=== PATIENT | male | born 1985 | race Two or more races ===

== ENCOUNTER 2025-07-20 13:50 | Emergency (ER) | payer BC, SELFPAY ==
--- NOTE | 2025-07-20 13:57 | EKG_ITS ---
[facility] Test Date: 2025-07-20 Pat Name: CHINYERE ROONEY Department: Room: - Gender: Male Probation Worker: : 1985 Requested By: Eleno Esteves Order Number: [id number] Reading MD: Eleno Esteves Measurements Intervals [place] Rate: 74 P: 28 MA: 150 QRS: 32 QRSD: 105 T: 32 QT: 358 QTc: 398 Interpretive Statements SINUS RHYTHM NONSPECIFIC T-WAVE ABNORMALITY No previous ECG available for comparison /store/S0/[id number]/ecg/[id number].pdf
[2025-07-20 14:03] VITALS: BMI 28.2
[2025-07-20 14:04] VITALS: BP 120/71; PULSE 65; RESP 18; TEMP 37; O2SAT 97
--- NOTE | 2025-07-20 14:20 | PD.EDHAND ---
Upper Extremity Injury RME/HPI General Chief Complaint: Hand/Wrist Problems Stated Complaint: Gout left wrist, left chest pain, feels faint Time Seen by Provider: 07/20/25 13:57 Arrival date/time: 07/20/25 13:50 RME / HPI RME / HPI narrative: 39-year-old male patient came in for evaluation regarding left wrist pain and swelling. Patient was drinking beer last night and this morning woke up with pain and swelling to the left wrist and earlier today the pain radiates to the elbow shoulder and chest. Patient denies any shortness of breath. Patient also complained of left ankle pain. Patient is ambulatory but limping. Patient told me that she been suffering from gout attack the last gout attack was a month ago. Currently not taking any medication. Related Data Previous Rx's ?Medication ?Instructions ?Recorded colchicine 0.6 mg capsule 0.6 mg PO BID #14 caps 07/20/25 indomethacin 75 mg 75 mg PO BID #20 caps 07/20/25 capsule,extended release prednisone 50 mg tablet 50 mg PO QDAY #7 tabs 07/20/25 Allergies Allergy/AdvReac Type Severity Reaction Status Date / Time Penicillins Allergy Verified 07/20/25 13:55 Review of Systems Review of Systems Narrative Review of Systems: Review of system reviewed and within normal limits except mentioned in HPI ED Exam Narrative Physical exam: VITAL SIGNS: Reviewed. GENERAL APPEARANCE: Alert and interactive, follows commands, no acute distress, HEAD AND FACE: Non-traumatic. ENT: PERRL, pink conjunctivitis, eyelid no trauma, Mucous membrane moist. NECK: Supple, nontender, no nuchal rigidity. CHEST: No tenderness, no crepitus, no paradoxical movement, no retractions. LUNGS: Clear, well ventilated, symmetric, no rales, no wheezing, no ronchi, no stridor, good breath sounds bilaterally. HEART: Regular rate, regular rhythm, no murmur, no gallops. ABDOMEN: Soft, positive bowel sounds, nondistended, no guarding, nontender, no rebound, no masses, RECTAL: Deferred. GENITAL: Deferred. NEUROLOGICAL: Gross motor function intact sensory function intact, Appropriate for age. MUSCULOSKELETAL: low back nontender, full range of motion. EXTREMITIES: Left wrist tenderness, mild swelling, no redness limitation range of motion. Left ankle tenderness no redness mild swelling full range of motion of the ankle joints SKIN: Color pink, dry, no rash, no lacerations, no abrasions, no contusions. LYMPHATICS: Deferred. Course Quality Measures none Orders Category Date Time Status EKG (ED ONLY) *Do not use* NOW Care 07/20/25 13:57 Completed EKG (ED Only) Stat Exams 07/20/25 13:57 Ordered CBC [CBC] Stat Lab 07/20/25 14:28 Completed CMP [Comprehensive Metabolic Panel] Stat Lab 07/20/25 14:28 Completed Troponin I Stat Lab 07/20/25 14:28 Completed Uric Acid Stat Lab 07/20/25 14:28 Completed Colchicine Med 07/20/25 14:19 Discontinued 1.2 mg PO X1 ONE Dexamethasone Inj [Decadron Inj] Med 07/20/25 14:19 Discontinued 10 mg PO X1 ONE Ketorolac Inj [Toradol Inj] Med 07/20/25 14:19 Discontinued 30 mg IM X1 ONE Vital Signs Vital signs: Vital Signs Temperature 98.6 F 07/20/25 14:04 Pulse Rate 65 07/20/25 14:04 Respiratory Rate 18 07/20/25 14:04 Blood Pressure 120/71 07/20/25 14:04 Pulse Oximetry (%) 97 07/20/25 14:04 Oxygen Delivery Method Room Air 07/20/25 14:04 Extremity Injury MDM Narrative MDM Narrative:: 39-year-old male patient came in for evaluation regarding left wrist pain and swelling. Patient was drinking beer last night and this morning woke up with pain and swelling to the left wrist and earlier today the pain radiates to the elbow shoulder and chest. Patient denies any shortness of breath. Patient also complained of left ankle pain. Patient is ambulatory but limping. Patient told me that she been suffering from gout attack the last gout attack was a month ago. Currently not taking any medication. Patient's workup today all came back unremarkable uric acid is normal except for slight leukocytosis 12.2 CMP unremarkable. Patient was given Toradol IM Decadron p.o., colchicine with significant improvement of symptoms. Patient was advised to stop drinking beer, eating food high in purine to decrease recurrence of gout attack. Patient agrees with the plan. Patient data External records reviewed:: None Clinical information provided by:: patient Social determinants that could affect healthcare access:: none Patient has the following chronic illnesses:: History of gout How is presenting disease/condition affected by chronic disease/condition?: exacerbated by Evaluation data The following diagnostics were reviewed and interpreted by me:: lab results Lab and/or radiology exams considered but not ordered:: None Interpretation Summary: See results MDM Medications / Prescriptions Medications or Prescriptions considered but not ordered:: None Medication administrations:: Medication Administration History Discontinued Medications Colchicine (Colchicine 0.6 Mg Tablet) 1.2 mg PO X1 ONE Stop: 07/20/25 14:20 Last Admin: 07/20/25 15:57 Dose: 1.2 mg Documented By: Dexamethasone Sodium Phosphate (Dexamethasone Sod Phos Inj 10 Mg/Ml Vial) 10 mg PO X1 ONE Stop: 07/20/25 14:20 Last Admin: 07/20/25 15:58 Dose: 10 mg Documented By: Ketorolac Tromethamine (Ketorolac Inj 30 Mg/Ml Vial) 30 mg IM X1 ONE Stop: 07/20/25 14:20 Last Admin: 07/20/25 15:58 Dose: 30 mg Documented By: Toradol Decadron and colchicine Consultations Consultation(s) initiated? (list below): No Diagnosis Upper Extremity Injury Differential Diagnosis: sprain and strain of wrist and other (Flare of gout,) Most likely diagnosis given after review of the tests above:: Gout flare Admission Indicated Admission indicated?: not indicated Explain why admission is indicated or not indicated:: Stable Admission Request Was there a request for admission?: No Disposition Plan Disposition Plan: Discharge Discharge Attestation Discharge Attestation: The patient was given an opportunity to ask questions and understood the discharge instructions. Discharge instructions specifically effects, indications for sooner follow up or return to the emergency department, and the expected course of current diagnosis. Patient condition: Stable Discharge Plan Plan Patient Disposition: HOME (Self Care) Discharge Disposition comment: Stable Prescriptions/Referrals Prescriptions/Med Rec: New prednisone 50 mg tablet 50 mg PO QDAY Qty: 7 0RF indomethacin 75 mg capsule, extended release 75 mg PO BID Qty: 20 0RF colchicine 0.6 mg capsule 0.6 mg PO BID Qty: 14 0RF Referrals: Albaro Keys[facility]MD [Primary Care Provider, Family Practice] - In 1 week Problem List Clinical Impression: Gout flare Patient/Caregiver Discharge Instructions Discharge Activity: activity as tolerated Education Materials: ED Gout Diet Additional Instructions: Thank you for the opportunity for serving you today. You are stable for discharged . You are advised to: Follow-up with your PCP in 1 to 2 days Return to ED for worsening of symptoms Increase oral fluids Take medication as prescribed Please avoid eating food and drinks that will flareup your gout Print Language: Syriac Stand Alone Forms: Kym Award Info., Patient Portal Info Letter OSEI/LEAH Supervising Physician OSEI/LEAH Supervising Physician: MD Brian
[2025-07-20 14:40] LABS: Basophils # (Auto) 0.0 Thou/mm3 (0.0-0.2); Basophils % (Auto) 0 % (0-2.5); Eosinophils # (Auto) 0.1 Thou/mm3 (0.0-0.5); Eosinophils % (Auto) 1 % (0-10); Hematocrit 44.2 % (41.0-53.0); Hemoglobin 14.5 g/dL (13.5-16.0); Immature Granulocytes Auto 0.05 Thou/mm3 (0.00-0.00); Lymphocytes # (Auto) 1.9 Thou/mm3 (1.0-4.8); Lymphocytes % (Auto) 15 % (10-50); Mean Corpuscular HGB Conc 32.8 g/dl (31.0-37.0); Mean Corpuscular Hemoglobin 27.4 pg (25.0-35.0); Mean Corpuscular Volume 83 fL (80-100); Monocytes # (Auto) 1.3 Thou/mm3 (0.0-0.8); Monocytes % (Auto) 10 % (0-12); Neutrophils # (Auto) 8.9 Thou/mm3 (1.8-7.7); Neutrophils % (Auto) 73 % (37-80); Nucleated Red Blood Cell # 0.00 Thou/mm3 (0.00-0.00); Nucleated Red Blood Cell % 0 /100 WBC (0); Platelet Count 156 Thou/mm3 (140-440); RDW Standard Deviation 40.4 fL (35.1-43.9); Red Blood Count 5.30 Miln/mm3 (4.50-5.90); White Blood Count 12.2 Thou/mm3 (3.8-10.6)
[2025-07-20 15:08] LABS: Alanine Aminotransferase 54 U/L (10-49); Albumin, Serum 4.9 gm/dL (3.5-5.0); Albumin/Globulin Ratio 1.8 (1.2-2.2); Alkaline Phosphatase 81 U/L (46-116); Anion Gap 10 (7-16); Aspartate Amino Transferase 28 U/L (0-34); BUN/Creatinine Ratio 11 Ratio (12-20); Bilirubin,Total 0.6 mg/dL (0.3-1.2); Blood Urea Nitrogen 12 mg/dL (9-23); Calcium 10.5 mg/dL (8.3-10.6); Calcium (Corrected) 10.5 mg/dL (8.5-10.1); Carbon Dioxide 27.8 mMol/L (20.0-31.0); Chloride 104 mMol/L (98-107); Creatinine (Component) 1.1 mg/dL (0.6-1.3); Estimated Creatinine Clearance 106.5 mL/min (>60); Globulin 2.7 gm/dL (2.3-3.5); Glucose 108 mg/dL (74-106); Osmolality,Calculated 283 (275-295); Potassium 4.5 mMol/L (3.4-5.1); Sodium 142 mMol/L (136-145); Total Protein 7.6 gm/dL (5.7-8.2); Troponin I < 0.002 ng/mL (0.0-0.045); Uric Acid 8.9 mg/dL (3.7-9.2); eGFR > 60 See Note
[2025-07-20] MEDS: COLCHICINE 0.6 MG TABLET 1.2 MG PO (15:57)
[2025-07-20] MEDS: DEXAMETHASONE SOD PHOS INJ 10 MG/ML VIAL PO (15:58)
[2025-07-20] MEDS: KETOROLAC INJ 30 MG/ML VIAL IM (15:58)
== END 2025-07-20 17:24 | disposition home or self-care (01) ==
PROVIDERS: Emergency Provider Nurse Practitioner Family; PCP Family Medicine
DX: M10.9 Gout, unspecified (principal); R94.31 Abnormal electrocardiogram [ECG] [EKG]; D72.829 Elevated white blood cell count, unspecified
CPT/HCPCS: 36415; 80053; 84484; 84550; 85025; 93005; 99284; J1100; J1885; A9270

== ENCOUNTER → 2025-08-27 | Outpatient (CLI) | payer BC, SELFPAY ==
--- NOTE | 2025-08-27 15:55 | XR_ITS ---
Examination: Humerus 2 views left Technique: Humerus, AP lateral 2 views Date and time of exam: August 27, 2025, 1631 hours INDICATIONS: Arm pain 3 months gout history FINDINGS: No shoulder fracture or dislocation Shaft of the humerus intact IMPRESSION: No shoulder fracture or dislocation No erosive arthritis
--- NOTE | 2025-08-27 15:55 | XR_ITS ---
Examination: Forearm, left, 2 views. Technique: Forearm, AP, lateral 2 views Date and time of exam: August 27, 2025, 1631 hours INDICATIONS: Forearm pain several months, gout diagnosis FINDINGS: Mild narrowing radiocarpal joint No erosive arthritis. 12 mm posterior bony olecranon spur No fracture IMPRESSION: Mild narrowing radiocarpal joint
--- NOTE | 2025-08-27 15:55 | XR_ITS ---
Examination: Shoulder, left, 3 views Technique: Shoulder AP internal rotation, AP external rotation, Y view shoulder, 3 views Exam date and time : August 27, 2025, 1635 hours INDICATIONS: Shoulder pain several months, gout diagnosis FINDINGS: No shoulder fracture or dislocation No erosive arthritis No foreign body IMPRESSION: No erosive arthritis
--- NOTE | 2025-08-27 15:55 | XR_ITS ---
Examination: Right elbow 3 views Technique: Elbow AP, oblique, lateral 3 views Exam date and time: August 27, 2025, 1611 hours INDICATIONS: Elbow pain several months, gout history FINDINGS: Mild elbow osteoarthritis 12 mm posterior bony olecranon spur No erosive arthritis IMPRESSION: Mild elbow osteoarthritis.
--- NOTE | 2025-08-27 15:55 | XR_ITS ---
EXAMINATION: Ankle, left 3 views. Technique: Ankle AP, oblique, lateral 3 views Date and time of exam: August 27, 2025, 1631 hours INDICATIONS: Ankle pain months, diagnosis gout FINDINGS: Mild narrowing tibiotalar joint No erosive arthritis Ossification in the Achilles insertion IMPRESSION: Mild narrowing tibiotalar joint
== END | disposition home or self-care (01) ==
PROVIDERS: PCP Nurse Practitioner; Referring Provider Nurse Practitioner; Visit Provider Nurse Practitioner
DX: M79.602 Pain in left arm (principal); M25.872 Other specified joint disorders, left ankle and foot; M25.80 Other specified joint disorders, unspecified joint; M19.022 Primary osteoarthritis, left elbow; M25.512 Pain in left shoulder
CPT/HCPCS: 73030; 73060; 73080; 73090; 73610

== ENCOUNTER → 2025-08-28 | Outpatient (CLI) | payer BC, SELFPAY ==
[2025-08-28 10:12] LABS: Collection Type, Urine Clean Catch; Squamous Epithelial Cell,Urine 0 /hpf (0-5)
[2025-08-28 10:44] LABS: Basophils # (Auto) 0.0 Thou/mm3 (0.0-0.2); Basophils % (Auto) 0 % (0-2.5); Eosinophils # (Auto) 0.0 Thou/mm3 (0.0-0.5); Eosinophils % (Auto) 0 % (0-10); Hematocrit 44.5 % (41.0-53.0); Hemoglobin 15.1 g/dL (13.5-16.0); Immature Granulocytes Auto 0.04 Thou/mm3 (0.00-0.00); Lymphocytes # (Auto) 1.2 Thou/mm3 (1.0-4.8); Lymphocytes % (Auto) 10 % (10-50); Mean Corpuscular HGB Conc 33.9 g/dl (31.0-37.0); Mean Corpuscular Hemoglobin 27.4 pg (25.0-35.0); Mean Corpuscular Volume 81 fL (80-100); Monocytes # (Auto) 0.7 Thou/mm3 (0.0-0.8); Monocytes % (Auto) 6 % (0-12); Neutrophils # (Auto) 10.3 Thou/mm3 (1.8-7.7); Neutrophils % (Auto) 84 % (37-80); Nucleated Red Blood Cell # 0.00 Thou/mm3 (0.00-0.00); Nucleated Red Blood Cell % 0 /100 WBC (0); Platelet Count 213 Thou/mm3 (140-440); RDW Standard Deviation 36.0 fL (35.1-43.9); Red Blood Count 5.51 Miln/mm3 (4.50-5.90); White Blood Count 12.2 Thou/mm3 (3.8-10.6)
[2025-08-28 10:57] LABS: Folate 15.39 ng/mL (>5.38); Vitamin B12 464 pg/mL (211-911); Vitamin D 25 Hydroxy Total 23.0 ng/mL (7.3-40.2)
[2025-08-28 11:14] LABS: Bilirubin,Urine Negative (Negative); Blood,Urine Trace (Negative); Clarity,Urine Clear (Clear/Hazy); Color,Urine Lt-Yellow (Lt Yel-Yel); Glucose, Urine Negative (Negative); Hyaline Casts,Urine < 1 /hpf (0-1); Ketones,Urine Negative (Negative); Leukocyte Esterase,Urine Negative (Negative); Nitrite,Urine Negative (Negative); PH,Urine 5.5 (5.0-7.0); Protein,Urine Trace (Neg - Trace); RBC,Urine 2 /hpf (0-3); Specific Gravity,Urine 1.024 (1.001-1.035); Urobilinogen,Urine Negative mg/dL (0.0-1.0); WBC,Urine 2 /hpf (0-5)
[2025-08-28 11:15] LABS: Alanine Aminotransferase 24 U/L (10-49); Albumin, Serum 5.3 gm/dL (3.5-5.0); Albumin/Globulin Ratio 2.0 (1.2-2.2); Alkaline Phosphatase 85 U/L (46-116); Anion Gap 11 (7-16); Aspartate Amino Transferase 18 U/L (0-34); BUN/Creatinine Ratio 18 Ratio (12-20); Bilirubin,Total 0.6 mg/dL (0.3-1.2); Blood Urea Nitrogen 18 mg/dL (9-23); Calcium 10.7 mg/dL (8.3-10.6); Calcium (Corrected) 10.7 mg/dL (8.5-10.1); Carbon Dioxide 26.4 mMol/L (20.0-31.0); Chloride 104 mMol/L (98-107); Creatinine (Component) 1.0 mg/dL (0.6-1.3); Free T4 (Free Thyroxine) 1.24 ng/dL (0.89-1.76); Globulin 2.7 gm/dL (2.3-3.5); Glucose 116 mg/dL (74-106); Osmolality,Calculated 284 (275-295); Potassium 4.8 mMol/L (3.4-5.1); Sodium 141 mMol/L (136-145); Thyroid Stimulating Hormone 0.75 uIU/mL (0.55-4.78); Total Protein 8.0 gm/dL (5.7-8.2); Uric Acid 9.7 mg/dL (3.7-9.2); eGFR > 60 See Note
[2025-08-28 11:27] LABS: Sperm,Urine Present
[2025-08-28 12:00] LABS: Sed Rate (ESR) 39 mm/hr (0-15)
[2025-08-28 12:33] LABS: Glucose Estimated Average 105 mg/dL (80-131); Hemoglobin A1C 5.3 % Hgb (4.8-6.0)
[2025-08-28 12:39] LABS: C-Reactive Protein 2.2 mg/dL (0.0-0.9); Cardiac Risk Estimate 4.2 RATIO (4.0-6.7); Cholesterol 249 mg/dL (132-200); Free T3 2.6 pg/mL (2.3-4.2); HDL Cholesterol 60 mg/dL (40-60); LDL Cholesterol,Calculated 172 mg/dL (0-130); Triglycerides 83 mg/dL (30-150)
[2025-09-05 07:36] LABS: Estradiol, Ultrasensitive* 14 pg/mL (< OR = 29); Testosterone, Free,Dialysis 27.2 pg/mL (35.0-155.0); Testosterone, Total, Dialysis 136 ng/dL (250-1100)
== END | disposition home or self-care (01) ==
LOC: COPL 09:26
PROVIDERS: PCP Nurse Practitioner; Referring Provider Nurse Practitioner; Visit Provider Nurse Practitioner
DX: M25.50 Pain in unspecified joint (principal); R53.83 Other fatigue; Z13.220 Encounter for screening for lipoid disorders; Z13.1 Encounter for screening for diabetes mellitus; M10.9 Gout, unspecified
CPT/HCPCS: 36415; 80053; 80061; 81001; 82306; 82607; 82670; 82746; 83036; 84402; 84403; 84439; 84443; 84481; 84550; 85025; 85652; 86140

== ENCOUNTER → 2025-10-16 | Outpatient (CLI) | payer BC, SELFPAY ==
[2025-10-16 10:17] LABS: Basophils # (Auto) 0.0 Thou/mm3 (0.0-0.2); Basophils % (Auto) 0 % (0-2.5); Eosinophils # (Auto) 0.1 Thou/mm3 (0.0-0.5); Eosinophils % (Auto) 1 % (0-10); Hematocrit 44.6 % (41.0-53.0); Hemoglobin 14.5 g/dL (13.5-16.0); Immature Granulocytes Auto 0.07 Thou/mm3 (0.00-0.00); Lymphocytes # (Auto) 4.6 Thou/mm3 (1.0-4.8); Lymphocytes % (Auto) 46 % (10-50); Mean Corpuscular HGB Conc 32.5 g/dl (31.0-37.0); Mean Corpuscular Hemoglobin 27.0 pg (25.0-35.0); Mean Corpuscular Volume 83 fL (80-100); Monocytes # (Auto) 1.1 Thou/mm3 (0.0-0.8); Monocytes % (Auto) 11 % (0-12); Neutrophils # (Auto) 4.2 Thou/mm3 (1.8-7.7); Neutrophils % (Auto) 41 % (37-80); Nucleated Red Blood Cell # 0.00 Thou/mm3 (0.00-0.00); Nucleated Red Blood Cell % 0 /100 WBC (0); Platelet Count 178 Thou/mm3 (140-440); RDW Standard Deviation 41.2 fL (35.1-43.9); Red Blood Count 5.37 Miln/mm3 (4.50-5.90); White Blood Count 10.1 Thou/mm3 (3.8-10.6)
[2025-10-16 10:34] LABS: Alanine Aminotransferase 14 U/L (10-49); Albumin, Serum 4.5 gm/dL (3.5-5.0); Albumin/Globulin Ratio 1.8 (1.2-2.2); Alkaline Phosphatase 67 U/L (46-116); Anion Gap 9 (7-16); Aspartate Amino Transferase 11 U/L (0-34); BUN/Creatinine Ratio 17 Ratio (12-20); Bilirubin,Total 0.6 mg/dL (0.3-1.2); Blood Urea Nitrogen 17 mg/dL (9-23); Calcium 9.4 mg/dL (8.3-10.6); Calcium (Corrected) 9.4 mg/dL (8.5-10.1); Carbon Dioxide 29.4 mMol/L (20.0-31.0); Cardiac Risk Estimate 3.5 RATIO (4.0-6.7); Chloride 107 mMol/L (98-107); Cholesterol 227 mg/dL (132-200); Creatinine (Component) 1.0 mg/dL (0.6-1.3); Globulin 2.5 gm/dL (2.3-3.5); Glucose 86 mg/dL (74-106); HDL Cholesterol 64 mg/dL (40-60); LDL Cholesterol,Calculated 127 mg/dL (0-130); Osmolality,Calculated 289 (275-295); Potassium 4.4 mMol/L (3.4-5.1); Sodium 145 mMol/L (136-145); Thyroid Stimulating Hormone 2.94 uIU/mL (0.55-4.78); Total Protein 7.0 gm/dL (5.7-8.2); Triglycerides 181 mg/dL (30-150); eGFR > 60 See Note
[2025-10-16 11:03] LABS: Glucose Estimated Average 117 mg/dL (80-131); Hemoglobin A1C 5.7 % Hgb (4.8-6.0)
[2025-10-23 06:31] LABS: Testosterone, Free,Dialysis 66.9 pg/mL (35.0-155.0); Testosterone, Total, Dialysis 308 ng/dL (250-1100)
== END | disposition home or self-care (01) ==
LOC: COPL 09:38
PROVIDERS: PCP Family Medicine; Referring Provider Student in an Organized Health Care Education/Training Program; Visit Provider Student in an Organized Health Care Education/Training Program
DX: Z00.00 Encounter for general adult medical examination without abnormal findings (principal)
CPT/HCPCS: 36415; 80053; 80061; 83036; 84402; 84403; 84443; 85025